=== PATIENT | female | born 1970 ===

== ENCOUNTER 2018-03-19 11:02 | Emergency (ER) | payer OTHER ==
[2018-03-19 11:10] VITALS: BMI 26.6
--- NOTE | 2018-03-19 11:40 | ED PDOC ---
HPI: Abdomen Time Seen by Provider: 03/19/18 11:16 Chief Complaint (Nursing): Abdominal Pain Chief Complaint (Provider): Abdominal Pain History Per: Patient History/Exam Limitations: no limitations Onset/Duration Of Symptoms: Days (x1) Current Symptoms Are (Timing): Still Present Quality Of Discomfort: Sharp Additional Complaint(s): 48 year old female presents to the ED for evaluation of sharp LLQ abdominal pain since yesterday. Denies any associated nausea, vomiting, diarrhea, urinary symptoms, and fever. LNMP: 2014 PMD: none provided Past Medical History Reviewed: Historical Data, Nursing Documentation, Vital Signs Vital Signs: Last Vital Signs Temp 98 F 03/19/18 11:09 Pulse 82 03/19/18 11:09 Resp 16 03/19/18 11:09 BP 124/80 03/19/18 11:09 Pulse Ox 100 03/19/18 11:09 - Medical History PMH: Hypothyroidism - Surgical History Surgical History: No Surg Hx - Family History Family History: States: Unknown Family Hx - Allergies Allergies/Adverse Reactions: Allergies Allergy/AdvReac Type Severity Reaction Status Date / Time No Known Allergies Allergy Verified 03/19/18 11:32 Review of Systems ROS Statement: Except As Marked, All Systems Reviewed And Found Negative Constitutional: Negative for: Fever Gastrointestinal: Positive for: Abdominal Pain (LLQ). Negative for: Nausea, Vomiting, Diarrhea Genitourinary Female: Negative for: Dysuria, Frequency, Incontinence Physical Exam - Reviewed Nursing Documentation Reviewed: Yes Vital Signs Reviewed: Yes - Physical Exam Appears: Positive for: No Acute Distress Head Exam: Positive for: ATRAUMATIC, NORMOCEPHALIC Skin: Positive for: Normal Color, Warm Eye Exam: Positive for: Normal appearance Neck: Positive for: Normal, Painless ROM, Supple Cardiovascular/Chest: Positive for: Regular Rate, Rhythm Respiratory: Positive for: Normal Breath Sounds. Negative for: Respiratory Distress Gastrointestinal/Abdominal: Positive for: Normal Exam, Soft, Tenderness (LLQ). Negative for: Mass Back: Positive for: Normal Inspection. Negative for: L CVA Tenderness, R CVA Tenderness Extremity: Positive for: Normal ROM Neurologic/Psych: Positive for: Alert, Oriented (x3) - Laboratory Results Result Diagrams: 03/19/18 12:00 03/19/18 12:00 - ECG O2 Sat by Pulse Oximetry: 100 (RA) Pulse Ox Interpretation: Normal Medical Decision Making Medical Decision Making: Time: 1135 Initial Impression: LLQ pain, does not appear to be GI, r/o ovarian cyst Initial Plan: --CMP --U-preg --U-dip --CBC with differential --Transvag US Scribe Attestation: Documented by Lisa Wakefield, acting as a scribe for Black Soto MD. Provider Scribe Attestation: All medical record entries made by the Scribe were at my direction and personally dictated by me. I have reviewed the chart and agree that the record accurately reflects my personal performance of the history, physical exam, medical decision making, and the department course for this patient. I have also personally directed, reviewed, and agree with the discharge instructions and disposition. Disposition - Clinical Impression Clinical Impression: Abdominal pain - Patient ED Disposition Is Patient to be Admitted: Transfer of Care - Disposition Disposition: Transfer of Care Disposition Time: 14:52 Condition: FAIR Forms: [employer] (Montenegrin) Patient Signed Over To: Jacey De Los Santos
[2018-03-19 12:08] LABS: EOS % 0.5 % (0.0-4.0); HEMOGLOBIN 13.1 g/dL (12.0-16.0); LYMPH # 1.5 K/uL (1.0-4.3); LYMPH % 35.2 % (20.0-40.0); MEAN CELL VOLUME 93.1 fl (81.0-99.0); MEAN CORPUSCULAR HGB CONC 32.2 g/dL (33.0-37.0); MEAN PLATELET VOLUME 9.7 fl (7.2-11.7); MONO # 0.4 K/uL (0.0-0.8); MONO % 9.2 % (0.0-10.0); NEUT # 2.3 K/uL (1.8-7.0); NEUT % 54.1 % (50.0-75.0); NRBC % 0.1 % (0.0-0.0); RBC 4.37 Mil/uL (3.80-5.20); RED CELL DISTRIBUTION WIDTH 14.5 % (11.5-14.5); WHITE BLOOD COUNT 4.3 K/uL (4.8-10.8)
[2018-03-19 12:18] LABS: ALB/GLOB RATIO 1.2 (1.0-2.1); ALBUMIN 4.3 g/dL (3.5-5.0); ALT/SGPT 15 U/L (9-52); AST/SGOT 23 U/L (14-36); BLOOD UREA NITROGEN 11 mg/dl (7-17); CALCIUM 9.8 mg/dL (8.4-10.2); GFR NON-AFRICAN AMERICAN > 60
--- NOTE | 2018-03-19 14:22 | US ---
Date of service: 03/19/2018 HISTORY: LLQ pain COMPARISON: None available. TECHNIQUE: Transabdominal/transvaginal sonographic evaluation of pelvis performed. FINDINGS: UTERUS: Measures 5.6 x 2.9 x 2.3 cm. Normal in size and appearance. No fibroid or other mass lesion seen. ENDOMETRIUM: Measures 2.1 mm in diameter. Unremarkable. CERVIX: No cervical abnormality identified. Cervix measures 1.8 cm RIGHT OVARY: Measures 2.3 x 1.9 x 1.0 cm. No solid mass. Normal flow. LEFT OVARY: Measures 2.0 x 1.8 x 1.0 cm. No solid mass. Normal flow. FREE FLUID: No significant free fluid noted. OTHER FINDINGS: None. IMPRESSION: Unremarkable pelvic ultrasound.
[2018-03-19 14:35] VITALS: RESP 19
--- NOTE | 2018-03-19 15:04 | ED PDOC ---
- Laboratory Results Result Diagrams: 03/19/18 12:00 03/19/18 12:00 - ECG O2 Sat by Pulse Oximetry: 100 (RA) Medical Decision Making Medical Decision Making: Time:1502 Patient endorsed to provider by Dr. Soto, pending CT. Time:165 Abd/[facility] CT FINDINGS: LOWER THORAX: Lung bases clear. Small hiatal hernia. LIVER: Liver exhibits normal size measuring approximately 14 cm in CC dimension. No obvious hepatic mass collection or calcification. Minor fatty hepatic infiltration. GALLBLADDER AND BILE DUCTS: Unremarkable. PANCREAS: Unremarkable. No mass. No ductal dilatation. SPLEEN: Unremarkable. No splenomegaly. ADRENALS: Unremarkable. KIDNEYS AND URETERS: Unremarkable. No stone or hydronephrosis. BLADDER: Urinary bladder incompletely distended which in part accounts for thick-walled appearance however the possibility of cystitis/UTI not excluded. Clinical correlation with urinalysis. REPRODUCTIVE: Unremarkable. APPENDIX: No evidence of acute appendicitis. BOWEL: Evaluation of the bowel is somewhat limited due to of the lack of oral contrast material. Stomach is incompletely distended with thick-walled appearance. Visualized loops of small bowel exhibit normal contour and caliber. No evidence of acute mechanical small bowel obstruction. Stool and air seen throughout the cecum ascending and some of the transverse colon. Portions of the descending colon are collapsed which likely in part accounts for prominent appearing wall however some submucosal fat deposition or edema not completely excluded.. There is a localized area infiltration about a short segment of the distal descending/proximal sigmoid colon junction that may could represent mild colitis or epiploica appendagitis. While no significant diverticular disease is seen the possibility of a mild localized diverticulitis also not completely excluded. Clinical correlation recommended. PERITONEUM: No gross free intraperitoneal air. No definitive evidence of loculated fluid or abscess collections. The LYMPH NODES: Unremarkable. No enlarged lymph nodes. VASCULATURE: Unremarkable. No aortic aneurysm. No aortic atherosclerotic calcification or mural plaque present. BONES: Mild minor multilevel degenerative spondylosis of the lower thoracic and lumbar spine. OTHER FINDINGS: None. IMPRESSION: There is mild wall thickening/edema involving short segment of the distal descending/sigmoid colon junction with some surrounding infiltration. Findings may represent a colitis. No obvious diverticular disease is present though the possibility of a mild acute diverticulitis or appendagitis epiploica would be additional differential diagnostic considerations. Mild fatty hepatic infiltration. Bladder wall thickening likely due to incomplete distention however possibility of a cystitis also not excluded. Time:1700 Pt was eating full meal in ER. Eager to be discharged. Discussed findings and plan of care with patient. Additionally discussed need for follow up for resolution of symptoms. Scribe Attestation: Documented by Joseph Coats, acting as a scribe for Jacey De Los Santos MD. Provider Scribe Attestation: All medical record entries made by the Scribe were at my direction and personally dictated by me. I have reviewed the chart and agree that the record accurately reflects my personal performance of the history, physical exam, medical decision making, and the department course for this patient. I have also personally directed, reviewed, and agree with the discharge instructions and disposition. Disposition Counseled Patient/Family Regarding: Studies Performed, Diagnosis, Need For Followup, Rx Given - Clinical Impression Clinical Impression: Abdominal pain, Colitis - POA Present On Arrival: None - Disposition Referrals: Madeleine Contreras MD [Medical Doctor] - 03/21/18 Disposition: Routine/Home Disposition Time: 17:17 Condition: IMPROVED Prescriptions: Ciprofloxacin [Cipro] 1 tab PO BID #14 tab Ibuprofen [Motrin Tab] 600 mg PO Q8 PRN #30 tab PRN Reason: Pain, Moderate (4-7) Saccharomyces Boulardi [Florastor] 500 mg PO BID #28 cap Instructions: Acute Abdomen (Belly Pain), Adult (DC), Colitis (DC) Forms: [employer] (French)
[2018-03-19] MEDS ORDERED: Iohexol 300 100 ML IJ ONE (15:07)
[2018-03-19] MEDS ORDERED: Sodium Chloride 0.9% 50 ML IV ONE (15:08)
--- NOTE | 2018-03-19 17:03 | CT ---
Date of service: 03/19/2018 PROCEDURE: CT Abdomen and Pelvis HISTORY: Abd pain COMPARISON: None. TECHNIQUE: Contiguous axial images of the abdomen and pelvis performed following intravenous injection of approximately 95 cc Omnipaque 300 contrast material. Additional 2D sagittal and coronal reformats generated. Radiation dose: Total exam DLP = 566.72 mGy-cm. This CT exam was performed using one or more of the following dose reduction techniques: Automated exposure control, adjustment of the mA and/or kV according to patient size, and/or use of iterative reconstruction technique. FINDINGS: LOWER THORAX: Lung bases clear. Small hiatal hernia. LIVER: Liver exhibits normal size measuring approximately 14 cm in CC dimension. No obvious hepatic mass collection or calcification. Minor fatty hepatic infiltration. GALLBLADDER AND BILE DUCTS: Unremarkable. PANCREAS: Unremarkable. No mass. No ductal dilatation. SPLEEN: Unremarkable. No splenomegaly. ADRENALS: Unremarkable. KIDNEYS AND URETERS: Unremarkable. No stone or hydronephrosis. BLADDER: Urinary bladder incompletely distended which in part accounts for thick-walled appearance however the possibility of cystitis/UTI not excluded. Clinical correlation with urinalysis. REPRODUCTIVE: Unremarkable. APPENDIX: No evidence of acute appendicitis. BOWEL: Evaluation of the bowel is somewhat limited due to of the lack of oral contrast material. Stomach is incompletely distended with thick-walled appearance. Visualized loops of small bowel exhibit normal contour and caliber. No evidence of acute mechanical small bowel obstruction. Stool and air seen throughout the cecum ascending and some of the transverse colon. Portions of the descending colon are collapsed which likely in part accounts for prominent appearing wall however some submucosal fat deposition or edema not completely excluded.. There is a localized area infiltration about a short segment of the distal descending/proximal sigmoid colon junction that may could represent mild colitis or epiploica appendagitis. While no significant diverticular disease is seen the possibility of a mild localized diverticulitis also not completely excluded. Clinical correlation recommended. PERITONEUM: No gross free intraperitoneal air. No definitive evidence of loculated fluid or abscess collections. The LYMPH NODES: Unremarkable. No enlarged lymph nodes. VASCULATURE: Unremarkable. No aortic aneurysm. No aortic atherosclerotic calcification or mural plaque present. BONES: Mild minor multilevel degenerative spondylosis of the lower thoracic and lumbar spine. OTHER FINDINGS: None. IMPRESSION: There is mild wall thickening/edema involving short segment of the distal descending/sigmoid colon junction with some surrounding infiltration. Findings may represent a colitis. No obvious diverticular disease is present though the possibility of a mild acute diverticulitis or appendagitis epiploica would be additional differential diagnostic considerations. Mild fatty hepatic infiltration. Bladder wall thickening likely due to incomplete distention however possibility of a cystitis also not excluded.
[2018-03-19 17:29] VITALS: BP 118/76; PULSE 76; TEMP 97.6; O2SAT 98
== END 2018-03-19 17:30 | disposition home or self-care (01) ==
LOC: H.ER 11:02
DX: R10.32 Left lower quadrant pain (principal); K52.9 Noninfective gastroenteritis and colitis, unspecified; E03.9 Hypothyroidism, unspecified
CPT/HCPCS: 74177; 76830; 80053; 81025; 85025; 99284; Q9967

== ENCOUNTER 2018-07-02 07:57 | Emergency (ER) | payer OTHER ==
[2018-07-02 08:01] VITALS: BMI 28.3
[2018-07-02 08:08] VITALS: O2SAT 98
--- NOTE | 2018-07-02 08:22 | ED PDOC ---
Lower Extremity Pain/Injury Time Seen by Provider: 07/02/18 08:03 Chief Complaint (Nursing): Lower Extremity Problem/Injury Chief Complaint (Provider): Lower Extremity Problem/Injury History Per: Patient History/Exam Limitations: no limitations Onset/Duration Of Symptoms: Persistent (x3 days) Current Symptoms Are (Timing): Still Present Additional Complaint(s): 48 year old female presents to the emergency department with family at bedside, for an evaluation of worsening right hip pain status post mechanical fall on 06/30/18. Patient denies headache, loss of consciousness, dizziness, chest pain, shortness of breath, numbness or weakness. She took Aleve last night with minimal relief. No dysuria, incontinence or constipation. PCP: Dr. Yoel Harley Past Medical History Reviewed: Historical Data, Nursing Documentation, Vital Signs Vital Signs: Last Vital Signs Temp 98.3 F 07/02/18 08:01 Pulse 81 07/02/18 08:01 Resp 16 07/02/18 08:01 BP 125/76 07/02/18 08:01 Pulse Ox 98 07/02/18 08:05 - Medical History PMH: Hypothyroidism - Family History Family History: States: Unknown Family Hx - Home Medications Home Medications: Ambulatory Orders Medication Instructions Recorded Ciprofloxacin [Cipro] 1 tab PO BID #14 tab 03/19/18 Ibuprofen [Motrin Tab] 600 mg PO Q8 PRN #30 tab 03/19/18 Saccharomyces Boulardi [Florastor] 500 mg PO BID #28 cap 03/19/18 Ibuprofen [Motrin] 600 mg PO TID 7 Days tab 07/02/18 Lidocaine 5% [Lidoderm] 1 ea TD DAILY PRN #5 patch 07/02/18 - Allergies Allergies/Adverse Reactions: Allergies Allergy/AdvReac Type Severity Reaction Status Date / Time No Known Allergies Allergy Verified 07/02/18 08:05 Review of Systems ROS Statement: Except As Marked, All Systems Reviewed And Found Negative Cardiovascular: Negative for: Chest Pain Respiratory: Negative for: Shortness of Breath Musculoskeletal: Positive for: Leg Pain (right hip to LE) Neurological: Negative for: Weakness, Numbness, Headache, Dizziness (or LOC) Physical Exam - Reviewed Nursing Documentation Reviewed: Yes Vital Signs Reviewed: Yes - Physical Exam Appears: Positive for: No Acute Distress Head Exam: Positive for: ATRAUMATIC, NORMAL INSPECTION, NORMOCEPHALIC Skin: Positive for: Normal Color Eye Exam: Positive for: Normal appearance, EOMI, PERRL Neck: Positive for: Normal, Painless ROM, Supple Cardiovascular/Chest: Positive for: Regular Rate, Rhythm, Chest Non Tender Respiratory: Positive for: Normal Breath Sounds. Negative for: Respiratory Distress Gastrointestinal/Abdominal: Positive for: Normal Exam, Soft. Negative for: Tenderness Back: Positive for: Muscle Spasm (right lower lateral back). Negative for: Decreased ROM Extremity: Positive for: Normal ROM (upper/lower and digits), Tenderness (right upper, proximal tib/fib area including knee with ecchymosis). Negative for: Pedal Edema (right-sided), Deformity, Other (right ankle pain or swelling) Neurological/Psych: Positive for: Awake, Alert, Oriented (x3), surveillance technician II-XII. Negative for: Motor/Sensory Deficits - Laboratory Results Urine POC: Negative - ECG O2 Sat by Pulse Oximetry: 98 (RA) Pulse Ox Interpretation: Normal - Radiology X-Ray: Read By Radiologist X-Ray Interpretation: No Acute Disease - Progress ED Course And Treament: 1117: Stable. AAOx3. Pain free. Tolerated po. FU with pcp. Medical Decision Making Medical Decision Making: Time: 821 Initial Plan: * XR lumbar spine * XR hip (right) * XR tib/fib (right) * Lidoderm * Toradol IM ------ Scribe Attestation: Documented by Sandra Hay, acting as a scribe for Dayne Pineda MD. Provider Scribe Attestation: All medical record entries made by the Scribe were at my direction and personally dictated by me. I have reviewed the chart and agree that the record accurately reflects my personal performance of the history, physical exam, medical decision making, and the department course for this patient. I have also personally directed, reviewed, and agree with the discharge instructions and disposition. Disposition - Clinical Impression Clinical Impression: Hip injury, Back injury - Patient ED Disposition Is Patient to be Admitted: No Counseled Patient/Family Regarding: Studies Performed, Diagnosis, Need For Followup, Rx Given - Disposition Referrals: [facility] [Outside] - 07/04/18 Disposition: Routine/Home Disposition Time: 09:00 Condition: STABLE Additional Instructions: Return if not better in 3 days. Prescriptions: Ibuprofen [Motrin] 600 mg PO TID 7 Days tab Lidocaine 5% [Lidoderm] 1 ea TD DAILY PRN #5 patch PRN Reason: Pain, Moderate (4-7) Instructions: Low Back Pain in Adults, Hip Pain (DC) Forms: [employer] (Chinese) Print Language: PORTUGUESE
[2018-07-02] MEDS ORDERED: Lidocaine 5% Patch TD STA (08:23)
[2018-07-02] MEDS ORDERED: Lidocaine 5% Patch TD ONE (08:37)
--- NOTE | 2018-07-02 10:40 | RAD ---
Date of service: 07/02/2018 PROCEDURE: Radiographs of the right tibia and fibula. HISTORY: pain COMPARISON: None available TECHNIQUE: Frontal and lateral views obtained. 2 views obtained. FINDINGS: BONES: No fracture or destructive lesion. JOINT SPACES: Unremarkable. OTHER FINDINGS: None. IMPRESSION: Unremarkable radiographs of the right tibia and fibula.
--- NOTE | 2018-07-02 10:44 | RAD ---
Date of service: 07/02/2018 PROCEDURE: Radiographs of the Lumbar Spine. HISTORY: back pain COMPARISON: No prior. TECHNIQUE: 5 views obtained. FINDINGS: BONES: Normal alignment. No listhesis. No fracture. DISC SPACES: Unremarkable. OTHER FINDINGS: None. IMPRESSION: Unremarkable radiographs of the lumbar spine.
--- NOTE | 2018-07-02 10:47 | RAD ---
PROCEDURE: Right Hip Radiographs. HISTORY: pain COMPARISON: CT scan of the abdomen and pelvis dated 03/19/2018. TECHNIQUE: 2 views obtained. FINDINGS: BONES: No acute fracture. Tiny ossicle adjacent to the superolateral right acetabulum. JOINTS: Normal. SOFT TISSUES: Normal. OTHER FINDINGS: None. IMPRESSION: No demonstrated fracture or dislocation.
[2018-07-02 11:58] VITALS: BP 127/78; PULSE 78; RESP 20; TEMP 97.6
== END 2018-07-02 11:58 | disposition home or self-care (01) ==
LOC: H.ER 07:57
DX: S39.92XA Unspecified injury of lower back, initial encounter (principal); S79.911A Unspecified injury of right hip, initial encounter; W19.XXXA Unspecified fall, initial encounter
CPT/HCPCS: 72114; 73502; 73590; 81025; 96372; 99282; J1885